=== PATIENT | male | born 1955 | race Two or more races ===

== ENCOUNTER 2020-12-12 02:36 | Emergency (ER) | payer MEDICAID, OTHER ==
[~2020-12-12] VITALS: Ht 180.3 cm; Wt 129.9 kg
[~2020-12-12 02:36] MED LIST: CYAN100049 PO; INSULANT SC; INSUR SC; JANU100T PO; MAGN400T2 PO; METF10004 PO; METF500T13 PO; VITA-182 PO; VITA-243 PO; VITA100066 PO; VITA500T37 PO
[2020-12-12] MEDS ORDERED: BOOSTRIX/ADACEL VACCINE (DIPHTH/PERTUSS/ACELL/TETANUS) 0.5ML SYR IM ONE (03:05)
[2020-12-12 04:01] LABS: BASO # 0.1 10^3/uL (0.0-0.2); BASO % 1.2 % (0.0-1.0); EOS # 0.2 10^3/uL (0.0-0.5); EOS % 4.1 % (0.0-3.0); HEMATOCRIT 51.8 % (42.0-52.0); LYMPH # 2.2 10^3/uL (1.5-5.0); LYMPH % 38.8 % (24.0-44.0); MEAN CORPUSCULAR HEMOGLOBIN 32.4 pg (27.0-33.0); MEAN CORPUSCULAR HGB CONC 32.8 g/dl (32.0-36.5); MEAN CORPUSCULAR VOLUME 98.9 fl (80.0-96.0); MONO # 0.5 10^3/uL (0.0-0.8); MONO % 8.3 % (2.0-8.0); NEUTROPHILS # 2.6 10^3/uL (1.5-8.5); NEUTROPHILS % 46.5 % (36.0-66.0); PLATELET COUNT, AUTOMATED 166 10^3/uL (150-450); RED BLOOD COUNT 5.24 10^6/uL (4.30-6.10); WHITE BLOOD COUNT 5.6 10^3/uL (4.0-10.0)
[2020-12-12] MEDS ORDERED: fentaNYL 100 MCG/2 ML INJECTION (J3010) IV ONE (04:30)
[2020-12-12 04:42] LABS: INR 1.1; PROTHROMBIN TIME 14.4 SECONDS (12.5-14.3)
[2020-12-12 04:43] LABS: PARTIAL THROMBOPLASTIN TIME 37.5 SECONDS (24.2-38.5)
[2020-12-12 05:33] LABS: ALBUMIN 3.9 GM/DL (3.2-5.2); ALT/SGPT 28 U/L (12-78); BILIRUBIN,DIRECT < 0.1 MG/DL (0.0-0.2); BILIRUBIN,TOTAL 0.5 MG/DL (0.2-1.0); BLOOD UREA NITROGEN 10 MG/DL (7-18); CALCIUM LEVEL 9.1 MG/DL (8.8-10.2); CARBON DIOXIDE LEVEL 19 MEQ/L (21-32); CHLORIDE LEVEL 101 MEQ/L (98-107); CK-MB VALUE MASS 3.4 NG/ML (<3.6); CPK CREATINE PHOSPHOKINASE 97 U/L (39-308); CREATININE FOR GFR 0.65 MG/DL (0.70-1.30); FREE T4 1.14 NG/DL (0.76-1.46); GLOMERULAR FILTRATION RATE > 60.0 (>49); GLUCOSE, FASTING 361 MG/DL (70-100); MB/CK RELATIVE INDEX 3.51 (< OR =4); POTASSIUM SERUM 4.3 MEQ/L (3.5-5.1); SODIUM LEVEL 133 MEQ/L (136-145); THYROID STIMULATING HORMONE 0.879 uIU/ML (0.358-3.740); TOTAL PROTEIN 7.4 GM/DL (6.4-8.2); TROPONIN I < 0.02 NG/ML (< 0.10)
--- NOTE | 2020-12-12 08:58 | REP ---
INDICATION: trauma COMPARISON: None. TECHNIQUE: Axial noncontrast images from the skull base to the thoracic inlet with coronal reformations. This CT examination was performed using the following dose reduction techniques: Automated exposure control, adjustment of mA and/or kv according to the patient's size, and use of iterative reconstruction technique. FINDINGS: Atrophy with periventricular leukomalacia and microvascular ischemic changes are appreciated. The ventricles and sulci are symmetric. Sarmiento-white differentiation is maintained. There is no evidence for acute intracranial hemorrhage, mass/mass effect, pathology or infarction. No extra-axial fluid collection. Calvarium is intact. Paranasal sinuses and mastoid air cells are clear. IMPRESSION: Atrophy and microvascular ischemic changes. No acute intracranial hemorrhage, infarction, or mass/mass effect. Examination was initially reported 12/12/2020 at 4:56 a.m. <Electronically signed by Jovan Hargrove > 12/12/20 [id number]
--- NOTE | 2020-12-12 08:59 | REP ---
INDICATION: trauma. COMPARISON: None. TECHNIQUE: Axial noncontrast images of the thoracic spine with coronal and sagittal reformations. FINDINGS: Thoracic vertebral bodies are intact and without acute fracture/compression injury or subluxation. Alignment and kyphosis maintained. Minimal age-related degenerative changes noted. Spinal canal is patent and normal. Posterior elements and spinous processes are intact. Paravertebral soft tissues are normal. IMPRESSION: Normal age-appropriate thoracic spine CT. No evidence for acute trauma/injury. Examination was initially reported 12/12/2020 at 4:59 a.m. <Electronically signed by Jovan Hargrove > 12/12/20 0820
--- NOTE | 2020-12-12 09:02 | REP ---
INDICATION: trauma. COMPARISON: None. TECHNIQUE: Axial noncontrast images of the lumbosacral spine from mid T12 through mid sacrum with coronal and sagittal reformations. This CT examination was performed using the following dose reduction techniques: Automated exposure control, adjustment of mA and/or kv according to the patient's size, and use of iterative reconstruction technique. FINDINGS: Alignment and lordosis maintained. Vertebral bodies are intact. Posterior elements and spinous processes are intact. There is no evidence for acute fracture/compression injury or subluxation. The spinal canal is patent. The paravertebral soft tissues are normal. Moderate multilevel degenerative changes noted. IMPRESSION: Normal lumbosacral spine CT. No evidence for acute fracture/compression injury or subluxation. Examination was initially reported 12/12/2020 at 5:06 am <Electronically signed by Jovan Hargrove > 12/12/20 0858
--- NOTE | 2020-12-12 09:09 | REP ---
INDICATION: trauma COMPARISON: None. TECHNIQUE: Axial noncontrast images from the skull base to the thoracic inlet with coronal and sagittal re-formations This CT examination was performed using the following dose reduction techniques: Automated exposure control, adjustment of mA and/or kv according to the patient's size, and use of iterative reconstruction technique. FINDINGS: Alignment and kyphosis maintained. No acute fracture/compression injury or subluxation. Advanced multilevel degenerative changes include osteophytosis, endplate sclerosis, facet hypertrophy and disc space narrowing with small posterior bulges. IMPRESSION: No evidence for acute fracture/compression injury or subluxation. Examination initially reported at 12/12/2020 at 5:01 a.m. <Electronically signed by Jovan Hargrove > 12/12/20 0916
[2020-12-12] MEDS ORDERED: ONDANSETRON 4MG/2ML VIAL IV ONE (09:10)
[2020-12-12 09:37] LABS: MAGNESIUM LEVEL 1.9 MG/DL (1.8-2.4)
[2020-12-12 09:56] VITALS: BP 123/78
--- NOTE | 2020-12-12 11:17 | REP ---
INDICATION: trauma. COMPARISON: 04/05/2016. TECHNIQUE: Single AP view chest. FINDINGS: There is no acute infiltrate or pulmonary edema. Lungs are clear. The cardiac silhouette is mildly prominent. The mediastinal silhouette is unremarkable and unchanged. The visualized osseous structures are intact. IMPRESSION: No acute pulmonary disease.Mild cardiomegaly. A preliminary report was provided by [facility] at the time of the exam. <Electronically signed by Jamie Sarmiento > 12/12/20 1119
--- NOTE | 2020-12-12 11:19 | REP ---
INDICATION: trauma COMPARISON: None. TECHNIQUE: Three views right shoulder. FINDINGS: There is anterior dislocation of the humeral head from the glenoid fossa. No fracture is visualized. There is spurring of the glenoid diffusely. There is moderate narrowing and spurring of the acromioclavicular joint. IMPRESSION: Anterior dislocation humeral head from the glenoid fossa. A preliminary report was provided by [facility] at the time of the exam. <Electronically signed by Jamie Sarmiento > 12/12/20 [id number]
--- NOTE | 2020-12-12 11:25 | REP ---
INDICATION: trauma COMPARISON: None. TECHNIQUE: Six views right knee. FINDINGS: There is no evidence of acute fracture, dislocation, or intrinsic bone disease.There is mild lateral joint space narrowing with chondrocalcinosis, subchondral sclerosis and spurring. There appears to be mild to moderate suprapatellar effusion. IMPRESSION: No fracture or dislocation. Mild degenerative changes. Mild to moderate suprapatellar effusion. A preliminary report was provided by [facility] at the time of the exam. <Electronically signed by Jamie Sarmiento > 12/12/20 [id number]
--- NOTE | 2020-12-12 11:34 | REP ---
INDICATION: eval reduction. COMPARISON: Right shoulder series earlier the same day. TECHNIQUE: Single portable view right shoulder post reduction. FINDINGS: There is reduction of the previously noted anterior dislocation of the humeral head, which is now well aligned with the glenoid. Degenerative changes are again seen of the acromioclavicular joint. There may be a Hill-Sachs deformity. IMPRESSION: Reduction of previously noted anterior dislocation of the humeral head. 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 A preliminary report was provided by [facility] at the time of the exam. <Electronically signed by Jaime Sarmiento > 12/12/20 [id number]
--- NOTE | 2020-12-13 19:44 | ECGEPIP ---
[facility] - ED Test Date: 2020-12-12 Pat Name: JOSI LEARY Department: Room: - Gender: Male [employer]: SR : 1955 Requested By: SKIP Ochoa Order Number: [id number] Reading MD: Apolinar Montaño Measurements Intervals [place] Rate: 76 P: DE: QRS: -38 QRSD: 130 T: 82 QT: 418 QTc: 470 Interpretive Statements Atrial fibrillation Left axis deviation MODERATE INTRAVENTRICULAR CONDUCTION DELAY RHYTHM CHANGE COMPARED TO 04/06/16 Electronically Signed on 12-13-2020 19:43:46 EDT by Apolinar Montaño
== END 2020-12-12 10:16 | disposition home or self-care (01) ==
LOC: M ED 02:36
DX: F10.129 Alcohol abuse with intoxication, unspecified (principal); S43.014A Anterior dislocation of right humerus, initial encounter; S80.211A Abrasion, right knee, initial encounter; W19.XXXA Unspecified fall, initial encounter; Y92.89 Other specified places as the place of occurrence of the external cause; Y93.89 Activity, other specified; Y99.8 Other external cause status; I49.1 Atrial premature depolarization; E11.9 Type 2 diabetes mellitus without complications; G40.909 Epilepsy, unspecified, not intractable, without status epilepticus; Z79.01 Long term (current) use of anticoagulants; Z79.4 Long term (current) use of insulin; Z79.899 Other long term (current) drug therapy
CPT/HCPCS: 23650; 70450; 71045; 72125; 72128; 72131; 73020; 73030; 73564; 80048; 80076; 82077; 82550; 82553; 83735; 84439; 84443; 85025; 85610; 85730; 90471; 90715; 93005; 93041; 94760; 96374; 96375; 99285; J2405; J3010

== ENCOUNTER → 2020-12-14 | Outpatient (CLI) | payer MEDICAID, OTHER ==
--- NOTE | 2020-12-14 11:01 | REP ---
INDICATION: INSTABILITY. COMPARISON: 12/12/2020 TECHNIQUE: Single axillary view of the right shoulder FINDINGS: No evidence for glenohumeral joint dislocation. IMPRESSION: No evidence for glenohumeral joint dislocation. <Electronically signed by Jovan Hargrove > 12/14/20 1051
== END ==
LOC: M SOG 10:24
PROVIDERS: ATTEND Orthopaedic Surgery Sports Medicine
DX: M25.311 Other instability, right shoulder (principal)

== ENCOUNTER → 2022-01-06 | Outpatient (CLI) | payer OTHER | LOC: M RAD 13:53 | PROVIDERS: ATTEND Surgery | DX: E11.621 Type 2 diabetes mellitus with foot ulcer (principal); L97.512 Non-pressure chronic ulcer of other part of right foot with fat layer exposed ==

== ENCOUNTER → 2022-01-29 | Outpatient (CLI) | payer OTHER | LOC: M RAD 14:50 | PROVIDERS: ATTEND Surgery | DX: R93.6 Abnormal findings on diagnostic imaging of limbs (principal); L97.512 Non-pressure chronic ulcer of other part of right foot with fat layer exposed ==

== ENCOUNTER → 2022-04-01 | Outpatient (POV) | payer OTHER ==
[~2022-04-01] VITALS: Ht 188 cm; Wt 122.7 kg
[2022-04-01 14:04] VITALS: BP 161/75
== END ==
LOC: M IRPOV 13:26
PROVIDERS: ATTEND Radiology Diagnostic Radiology
DX: I87.2 Venous insufficiency (chronic) (peripheral) (principal); E11.621 Type 2 diabetes mellitus with foot ulcer; L97.519 Non-pressure chronic ulcer of other part of right foot with unspecified severity; R60.0 Localized edema; R53.83 Other fatigue; J44.9 Chronic obstructive pulmonary disease, unspecified; I48.91 Unspecified atrial fibrillation; I25.2 Old myocardial infarction

== ENCOUNTER → 2022-05-21 | Outpatient (CLI) | payer OTHER | LOC: M RAD 16:11 | PROVIDERS: ATTEND Physician Assistant | DX: R91.8 Other nonspecific abnormal finding of lung field (principal) ==

== ENCOUNTER → 2022-06-17 | Outpatient (CLI) | payer OTHER | LOC: M CARPUL 13:44 | PROVIDERS: ATTEND Physician Assistant | DX: R06.00 Dyspnea, unspecified (principal) ==

== ENCOUNTER 2022-11-25 01:30 | Emergency (ER) | payer OTHER ==
[~2022-11-25] VITALS: Ht 190.5 cm; Wt 120.5 kg
[2022-11-25] MEDS ORDERED: BOOSTRIX VACCINE (TETANUS/DIPHTH/ACEL. PERTUSSIS) 0.5ML SYR IM.IMMUN ONE (04:25)
[2022-11-25 04:37] LABS: BASO % 0.6 % (0.0-1.0); EOS # 0.1 10^3/uL (0.0-0.5); EOS % 2.3 % (0.0-3.0); HEMATOCRIT 44.1 % (42.0-52.0); LYMPH # 1.7 10^3/uL (1.5-5.0); MONO # 0.4 10^3/uL (0.0-0.8); MONO % 6.5 % (2.0-8.0); NEUTROPHILS # 3.9 10^3/uL (1.5-8.5); NEUTROPHILS % 63.1 % (36.0-66.0); PLATELET COUNT, AUTOMATED 206 10^3/uL (150-450); RED BLOOD COUNT 4.69 10^6/uL (4.30-6.10); WHITE BLOOD COUNT 6.2 10^3/uL (4.0-10.0)
[2022-11-25 05:04] LABS: ETHYL ALCOHOL (ETHANOL) 0.275 % (0.000-0.010)
[2022-11-25 05:06] LABS: ALBUMIN 3.9 G/DL (3.2-5.2); ALKALINE PHOSPHATASE 114 U/L (46-116); ALT/SGPT 16 U/L (7.0-40); AST/SGOT 20 U/L (<34); BILIRUBIN,DIRECT 0.3 MG/DL (<0.4); BILIRUBIN,TOTAL 0.5 MG/DL (0.3-1.2); BLOOD UREA NITROGEN 10 MG/DL (9-23); CALCIUM LEVEL 8.3 MG/DL (8.3-10.6); CARBON DIOXIDE LEVEL 25 MMOL/L (20-31); CHLORIDE LEVEL 99 MMOL/L (98-107); CREATININE FOR GFR 0.55 MG/DL (0.70-1.30); GLOMERULAR FILTRATION RATE > 60.0 (>49); GLUCOSE, FASTING 150 MG/DL (74-106); POTASSIUM SERUM 3.8 MMOL/L (3.5-5.1); SODIUM LEVEL 133 MMOL/L (136-145)
[2022-11-25 05:13] LABS: THYROID STIMULATING HORMONE 0.715 uIU/ML (0.55-4.78)
[2022-11-25 05:39] LABS: INR 1.18; PROTHROMBIN TIME 15.2 SECONDS (12.5-14.5)
[2022-11-25 05:40] LABS: PARTIAL THROMBOPLASTIN TIME 40.3 SECONDS (24.8-34.2)
[2022-11-25 09:30] VITALS: BP 119/55
== END 2022-11-25 09:40 | disposition home or self-care (01) ==
LOC: M ED 01:30
DX: T07.XXXA Unspecified multiple injuries, initial encounter (principal); W19.XXXA Unspecified fall, initial encounter; Y92.89 Other specified places as the place of occurrence of the external cause; Y93.89 Activity, other specified; Y99.8 Other external cause status; F10.129 Alcohol abuse with intoxication, unspecified; E11.21 Type 2 diabetes mellitus with diabetic nephropathy; Z79.4 Long term (current) use of insulin

== ENCOUNTER → 2023-01-16 | Outpatient (CLI) | payer OTHER | LOC: M SLEEP 20:00 | PROVIDERS: ATTEND Physician Assistant | DX: G47.33 Obstructive sleep apnea (adult) (pediatric) (principal) ==

== ENCOUNTER 2023-10-09 14:00 | Outpatient (RCR) | payer OTHER, MEDICAID | END 2023-10-11 | disposition still patient (30) | LOC: M PT 14:00 | PROVIDERS: ATTEND Physician Assistant | DX: M25.561 Pain in right knee (principal) ==

== ENCOUNTER 2023-10-09 14:08 | Outpatient (RCR) | payer OTHER, MEDICAID | END 2023-10-11 | LOC: M PT 14:08 | PROVIDERS: ATTEND Physician Assistant | DX: M25.561 Pain in right knee (principal) | CPT/HCPCS: 97140; 97162; 97530; G0283 ==

== ENCOUNTER 2023-10-21 12:52 | Emergency (ER) | payer OTHER, MEDICAID ==
[~2023-10-21] VITALS: Ht 188 cm; Wt 144.0 kg
[2023-10-21 12:53] VITALS: TEMP 97.5
[2023-10-21 16:14] LABS: ERYTHROCYTE SEDIMENTATION RATE 37 mm/hr (0-20)
[2023-10-21 16:17] LABS: BLOOD UREA NITROGEN 13 MG/DL (9-23); CARBON DIOXIDE LEVEL 30 MMOL/L (20-31); CHLORIDE LEVEL 106 MMOL/L (98-107); CREATININE FOR GFR 0.54 MG/DL (0.70-1.30); GLOMERULAR FILTRATION RATE > 60.0 (>49); GLUCOSE, FASTING 159 MG/DL (74-106); POTASSIUM SERUM 4.4 MMOL/L (3.5-5.1); SODIUM LEVEL 139 MMOL/L (136-145)
[2023-10-21 17:10] LABS: BASO % 0.6 % (0.0-1.0); EOS # 0.2 10^3/uL (0.0-0.5); HEMATOCRIT 43.5 % (42.0-52.0); HEMOGLOBIN 14.8 g/dl (13.5-17.5); LYMPH # 1.1 10^3/uL (1.5-5.0); LYMPH % 16.6 % (24.0-44.0); MEAN CORPUSCULAR HEMOGLOBIN 32.9 pg (27.0-33.0); MEAN CORPUSCULAR VOLUME 96.7 fl (80.0-96.0); MONO # 0.6 10^3/uL (0.0-0.8); MONO % 8.8 % (2.0-8.0); NEUTROPHILS # 4.7 10^3/uL (1.5-8.5); NEUTROPHILS % 70.4 % (36.0-66.0); PLATELET COUNT, AUTOMATED 178 10^3/uL (150-450); WHITE BLOOD COUNT 6.7 10^3/uL (4.0-10.0)
[2023-10-21] MEDS ORDERED: DOXY-443 PO (18:19)
[2023-10-21] MEDS: DOXYCYCLINE HYCLATE 100 MG in D5W MINI-BAG PLUS 100 ML IV ONE (18:26)
[2023-10-21 18:39] VITALS: BP 125/58; O2SAT 99
== END 2023-10-21 19:38 | disposition home or self-care (01) ==
LOC: M ED 12:52
DX: L03.115 Cellulitis of right lower limb (principal); I89.0 Lymphedema, not elsewhere classified; I25.2 Old myocardial infarction; E11.9 Type 2 diabetes mellitus without complications; E78.5 Hyperlipidemia, unspecified; F32.A Depression, unspecified; F17.210 Nicotine dependence, cigarettes, uncomplicated; F10.10 Alcohol abuse, uncomplicated; Z79.899 Other long term (current) drug therapy; Z79.4 Long term (current) use of insulin; Z79.84 Long term (current) use of oral hypoglycemic drugs; Z79.2 Long term (current) use of antibiotics

== ENCOUNTER 2023-10-28 13:59 | Outpatient (RCR) | payer OTHER, MEDICAID ==
[~2023-10-28 13:59] MED LIST changes: +DOXY-443 PO
== END 2023-11-10 ==
LOC: M PT 13:59
PROVIDERS: ATTEND Physician Assistant
DX: M25.561 Pain in right knee (principal)
CPT/HCPCS: 97110; 97140; G0283

== ENCOUNTER → 2023-11-26 | Outpatient (CLI) | payer OTHER, MEDICAID ==
[~2023-11-26] MED LIST changes: +DOXY-323 PO; -DOXY-443 PO
[2023-11-26 16:04] LABS: BASO % 0.6 % (0.0-1.0); EOS # 0.2 10^3/uL (0.0-0.5); EOS % 2.3 % (0.0-3.0); HEMATOCRIT 45.5 % (42.0-52.0); HEMOGLOBIN 15.1 g/dl (13.5-17.5); LYMPH # 1.4 10^3/uL (1.5-5.0); LYMPH % 20.2 % (24.0-44.0); MEAN CORPUSCULAR HEMOGLOBIN 31.5 pg (27.0-33.0); MEAN CORPUSCULAR HGB CONC 33.2 g/dl (32.0-36.5); MONO # 0.8 10^3/uL (0.0-0.8); MONO % 11.2 % (2.0-8.0); NEUTROPHILS # 4.5 10^3/uL (1.5-8.5); NEUTROPHILS % 65.3 % (36.0-66.0); PLATELET COUNT, AUTOMATED 195 10^3/uL (150-450); RED BLOOD COUNT 4.79 10^6/uL (4.30-6.10); WHITE BLOOD COUNT 6.9 10^3/uL (4.0-10.0)
[2023-11-26 16:12] LABS: ERYTHROCYTE SEDIMENTATION RATE 20 mm/hr (0-20)
== END ==
LOC: M PLALAB 12:57
PROVIDERS: ATTEND Internal Medicine Infectious Disease
DX: U07.1 COVID-19 (principal); L03.119 Cellulitis of unspecified part of limb; Z86.14 Personal history of Methicillin resistant Staphylococcus aureus infection

== ENCOUNTER 2023-12-08 15:00 | Outpatient (RCR) | payer OTHER, MEDICAID | END 2023-12-11 | LOC: M PT 15:00 | PROVIDERS: ATTEND Physician Assistant | DX: M25.561 Pain in right knee (principal) ==

== ENCOUNTER 2023-12-29 14:59 | Outpatient (RCR) | payer OTHER, MEDICAID | END 2024-01-10 | LOC: M PT 14:59 | PROVIDERS: ATTEND Physician Assistant | DX: M25.561 Pain in right knee (principal) ==

== ENCOUNTER → 2024-01-12 | Outpatient (CLI) | payer OTHER, MEDICAID | LOC: M RAD 12:42 | PROVIDERS: ATTEND Physician Assistant | DX: I89.0 Lymphedema, not elsewhere classified (principal) ==

== ENCOUNTER → 2024-01-19 | Outpatient (CLI) | payer OTHER, MEDICAID | LOC: M RAD 12:13 | PROVIDERS: ATTEND Physician Assistant | DX: I89.0 Lymphedema, not elsewhere classified (principal) ==

== ENCOUNTER 2024-02-04 14:56 | Outpatient (RCR) | payer OTHER, MEDICAID | END 2024-02-10 | LOC: M PT 14:56 | PROVIDERS: ATTEND Physician Assistant | DX: M25.561 Pain in right knee (principal) ==

== ENCOUNTER 2024-03-03 15:00 | Outpatient (RCR) | payer OTHER, MEDICAID | END 2024-03-12 | LOC: M PT 15:00 | PROVIDERS: ATTEND Physician Assistant | DX: M25.561 Pain in right knee (principal) | CPT/HCPCS: 97110; G0283 ==

== ENCOUNTER 2024-03-17 15:05 | Outpatient (RCR) | payer OTHER, MEDICAID | END 2024-04-11 | LOC: M PT 15:05 | PROVIDERS: ATTEND Physician Assistant | DX: M25.561 Pain in right knee (principal) ==

== ENCOUNTER → 2024-05-17 | Outpatient (CLI) | payer OTHER, MEDICAID ==
[~2024-05-17] MED LIST changes: -DOXY-323 PO; +DOXY-441 PO
[2024-05-17 14:59] LABS: BASO # 0.1 10^3/uL (0.0-0.2); BASO % 0.7 % (0.0-1.0); EOS # 0.1 10^3/uL (0.0-0.5); EOS % 1.1 % (0.0-3.0); HEMATOCRIT 44.5 % (42.0-52.0); HEMOGLOBIN 15.6 g/dl (13.5-17.5); LYMPH # 0.8 10^3/uL (1.5-5.0); LYMPH % 11.3 % (24.0-44.0); MEAN CORPUSCULAR HEMOGLOBIN 32.4 pg (27.0-33.0); MEAN CORPUSCULAR HGB CONC 35.1 g/dl (32.0-36.5); MEAN CORPUSCULAR VOLUME 92.3 fl (80.0-96.0); MONO # 0.7 10^3/uL (0.0-0.8); MONO % 9.2 % (2.0-8.0); NEUTROPHILS # 5.7 10^3/uL (1.5-8.5); NEUTROPHILS % 77.3 % (36.0-66.0); PLATELET COUNT, AUTOMATED 205 10^3/uL (150-450); RED BLOOD COUNT 4.82 10^6/uL (4.30-6.10); WHITE BLOOD COUNT 7.4 10^3/uL (4.0-10.0)
[2024-05-17 15:09] LABS: ERYTHROCYTE SEDIMENTATION RATE 33 mm/hr (0-20)
[2024-05-17 15:20] LABS: LIPASE 15 U/L (12-53)
[2024-05-17 15:22] LABS: ALBUMIN 3.4 G/DL (3.2-5.2); ALKALINE PHOSPHATASE 157 U/L (40-129); ALT/SGPT 22 U/L (7.0-40); AST/SGOT 20 U/L (<34); BILIRUBIN,TOTAL 0.8 MG/DL (0.3-1.2); BLOOD UREA NITROGEN 7 MG/DL (9-23); CALCIUM LEVEL 9.1 MG/DL (8.3-10.6); CARBON DIOXIDE LEVEL 30 MMOL/L (20-31); CHLORIDE LEVEL 101 MMOL/L (98-107); CREATININE FOR GFR 0.39 MG/DL (0.70-1.30); GLOMERULAR FILTRATION RATE > 60.0 (>49); GLUCOSE, FASTING 126 MG/DL (74-106); POTASSIUM SERUM 3.6 MMOL/L (3.5-5.1); SODIUM LEVEL 137 MMOL/L (136-145); TOTAL PROTEIN 7.5 G/DL (5.7-8.2)
== END ==
LOC: M PLALAB 13:44
PROVIDERS: ATTEND Internal Medicine Infectious Disease
DX: L03.119 Cellulitis of unspecified part of limb (principal); R10.13 Epigastric pain

== ENCOUNTER → 2024-05-17 | Outpatient (REF) | payer OTHER, MEDICAID | LOC: M LAB REF 11:55 | PROVIDERS: ATTEND Internal Medicine | DX: M10.9 Gout, unspecified (principal) ==

== ENCOUNTER → 2024-06-08 | Outpatient (CLI) | payer OTHER, MEDICAID | LOC: M WHC 12:51 | PROVIDERS: ATTEND Internal Medicine | DX: M85.80 Other specified disorders of bone density and structure, unspecified site (principal) ==

== ENCOUNTER → 2025-06-13 | Outpatient (CLI) | payer MEDICARE | LOC: M RAD 13:08 | PROVIDERS: ATTEND Physician Assistant | DX: I83.018 Varicose veins of right lower extremity with ulcer other part of lower leg (principal); L97.912 Non-pressure chronic ulcer of unspecified part of right lower leg with fat layer exposed ==

== ENCOUNTER → 2025-07-10 | Outpatient (POV) | payer MEDICARE, MEDICAID | LOC: M IRPOV 13:30 | PROVIDERS: ATTEND Registered Nurse School | DX: I87.311 Chronic venous hypertension (idiopathic) with ulcer of right lower extremity (principal); L97.919 Non-pressure chronic ulcer of unspecified part of right lower leg with unspecified severity; F17.210 Nicotine dependence, cigarettes, uncomplicated; Z79.01 Long term (current) use of anticoagulants; Z79.4 Long term (current) use of insulin; Z79.899 Other long term (current) drug therapy ==